=== PATIENT | male | born 1950 | race African-American/Black ===

== ENCOUNTER 2020-04-20 18:39 | Emergency (ER) | payer MEDICARE, OTHER ==
[~2020-04-20] VITALS: Ht 182.9 cm; Wt 63.5 kg
[2020-04-20] MEDS ORDERED: ACETAMINOPHEN 325 MG SUPP PR ONE (19:45)
[2020-04-20 20:47] VITALS: BP 149/62
--- NOTE | 2020-04-20 21:13 | Emergency Department Note ---
History of Present Illnes History of Present Illness Chief Complaint: COVID PUI History of Present Illness This is a 69 year old male arrives to the ED after being combative at the group home, patient's, cooperative in the ED. Patient is Covid positive. Patient given Tylenol with no difficulties in the ED. 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 Any updates have been documented here. Past Medical History Recent Fever: Yes Clinical Suspicion of Infectio: Yes New/Unexplained Change in Ment: No Past Medical History: Hypertension, Diabetes, CVA, TIA, Hypothyroidism, Seizure Disorder, UTI's, Anemia, Depression, GERD Other Medical History: APHASIA CONSTIPATION BPH TOXIC ENCEPHALOPATHY INSOMNIA HYPERKALEMIA PARKINSON'S DISEASE DEMENTIA SCHIZOPHRENIA CARIDAD BIPOLAR ARTHRITIS Other Surgery: UNABLE TO OBTAIN SX HX Social History Smoking Cessation: Unknown if ever smoked Alcohol Use: None Any Illegal Drug Use: No Physically hurt or threatened: No Other Any Pre-Existing Lines (PICC,: No Review of Systems Review of Systems Constitutional: Reports as per HPI EENTM: Reports no symptoms Cardiovascular: Reports no symptoms Respiratory: Reports no symptoms Gastrointestinal: Reports no symptoms Genitourinary: Reports no symptoms Musculoskeletal: Reports no symptoms Integumentary: Reports no symptoms Neurological: Reports no symptoms Psychological: Reports no symptoms Endocrine: Reports no symptoms Hematological/Lymphatic: Reports no symptoms Physical Exam Related Data Allergies: Coded Allergies: No Known Drug Allergies (Verified Allergy, Unknown, 04/20/20) Triage Vital Signs Vital Signs Date Time Temp Pulse Resp B/P (MAP) Pulse Ox O2 Delivery O2 Flow Rate FiO2 04/20/20 18:40 101.4 82 18 128/100 96 Room Air Vital signs reviewed: Yes Physical Exam CONSTITUTIONAL Constitutional: Present well-developed, Present well-nourished, Present cachectic HENT HENT: Present normocephalic, Present atraumatic, Present oropharynx clear/moist, Present nose normal HENT L/R: Present left ext ear normal, Present right ext ear normal EYES Eyes: Reports PERRL, Reports conjunctivae normal NECK Neck: Present ROM normal PULMONARY Pulmonary: Present effort normal, Present breath sounds normal CARDIOVASCULAR Cardiovascular: Present regular rhythm, Present heart sounds normal, Present capillary refill normal, Present normal rate GASTROINTESTINAL Abdominal: Present soft, Present nontender, Present bowel sounds normal GENITOURINARY Genitourinary: Present exam deferred SKIN Skin: Present warm, Present dry MUSCULOSKELETAL NEUROLOGICAL Neurological: Present alert, Present oriented x 3, Present no gross motor or sensory deficits PSYCHOLOGICAL Assessment & Plan Medical Decision Making MDM 69 about this being combative "positive not taking Tylenol. Hypoxic in the ED, took Tylenol, fever included no indication further workup in the emergency department Assessment & Plan Final Impression: (1) COVID-19 Depart Disposition: DIS TO [facility] Last Vital Signs Date Time Temp Pulse Resp B/P (MAP) Pulse Ox O2 Delivery O2 Flow Rate FiO2 04/20/20 20:47 76 19 95 04/20/20 19:27 101.5 150/99 04/20/20 18:40 Room Air Medications in the ED Acetaminophen 975 mg ONCE ONCE [place] Last administered on 04/20/20at 19:57; Admin Dose 975 MG; Start 04/20/20 at 19:45; Stop 04/20/20 at 20:15; Status DC CAPO LOVE DO Apr 20, 2020 21:13
== END 2020-04-20 21:42 ==
LOC: ER 19:00
DX: U07.1 COVID-19 (principal); I69.920 Aphasia following unspecified cerebrovascular disease; F03.90 Unspecified dementia, unspecified severity, without behavioral disturbance, psychotic disturbance, mood disturbance, and anxiety; G40.909 Epilepsy, unspecified, not intractable, without status epilepticus; I10 Essential (primary) hypertension; E11.9 Type 2 diabetes mellitus without complications; F20.9 Schizophrenia, unspecified; K21.9 Gastro-esophageal reflux disease without esophagitis; E03.9 Hypothyroidism, unspecified
CPT/HCPCS: 99283